=== PATIENT | male | born 1960 | race Caucasian/White ===

== ENCOUNTER → 2018-01-02 | Outpatient (CLI) | payer MEDICARE ==
[2015-01-16 13:43] VITALS: BMI 30.3
[~2018-01-02] MED LIST: ACET-1718 PO; ACET-3017 PO; ALB18R INH; ALBU8.5H IH; ALBU8.5H12 IH; AMOX-559 PO; AZIT-17 PO; CIPR500S3 PO; DIA5 PO; DIAZ-308 PO; DIAZ-311 PO; FLU IM; FLU45SYR17 IM; FLU45SYR25 IM ONLY; FLU60VIA31 IM; FLUT16SP19 NS; FLUT9.9S; HEPA20VI IM; HEPA40VI2 IM; LEDI1TAB PO; LOR5/325 PO; MECL-81 PO; MECL25TA9 PO; MELO-205 PO; MELO-207 PO; METR-1 PO; METR-159 PO; MULT-885 PO; NAPR220C11 PO; OMEP-125 PO; OMEP-137 PO; ONDA-2 PO; ONDA4TAB PO; ONDA4TAB97 PO; ONDA8TAB94 PO; ONDA8TAB98 PO; OXYC-373 PO; OXYC-865 PO; OXYC-869 PO; OXYC1TAB78 PO; OXYC5TAB38 PO; Oxycodone Hcl PO; PENI-24 PO; PER PO; POTA20TA12 PO; POTA99TA6 PO; PRED20TA6 PO; PROM-110 PO; PROM12.556 PO; Potassium Chloride PO; RIV10 PO; TRIA10.8
[2018-01-02 15:54] LABS: PLATELET COUNT, AUTOMATED 256 K/uL (150-450)
== END ==
LOC: LAB 15:35
PROVIDERS: ATTEND Nurse Practitioner Family
DX: R10.9 Unspecified abdominal pain (principal)
CPT/HCPCS: 36415; 82040; 82247; 82310; 82374; 82435; 82565; 82947; 84075; 84132; 84155; 84295; 84450; 84460; 84520; 85025

== ENCOUNTER → 2018-01-03 | Outpatient (CLI) | payer MEDICARE ==
[2015-01-16 13:43] VITALS: BMI 30.3
[~2018-01-03] MED LIST changes: +IOPAMIDOL 76% 75 ML INFUS BTL 75 ML ONE
--- NOTE | 2018-01-03 13:59 | RADIOLOGY IMAGING REPORT ---
FACILITY: [facility] - [place] PATIENT NAME: Cal Workman : 1960 MR: [id number] V: [id number] EXAM DATE: ORDERING PHYSICIAN: MADYSON WILLSON TECHNOLOGIST: Location: [facility] Patient: Cal Workman : 1960 Visit/Account:[id number] Date of Sevice: 01/03/2018 ABDOMEN/PELVIS W/WO CONTRAST HISTORY: LLQ pain - bloody stools TECHNIQUE: Axial images acquired through the abdomen/pelvis both with and without IV contrast.. Payal nal and sagittal reformatting also performed. Dose Lowering Technique One of the following dose optimization techniques was utilized in the performance of this exam: Autom ated exposure control; adjustment of the mA and/or kV according to the patient's size; or use of an i terative reconstruction technique. Specific details can be referenced in the facility's radiology C T exam operational policy. CONTRAST: 75 mL Isovue-370 COMPARISON: November 05, 2014 FINDINGS: Visualized lung bases: Negative. Hepatobiliary: Cholelithiasis although no evidence of bony ductal dilatation Spleen: Negative. Adrenals: Negative. Pancreas: Negative. Kidneys ureters and bladder: There is no demonstration of urolithiasis. There is a 1.2 cm cyst upper pole the right kidney and a 2.3 cm cyst mid pole of the left kidney. There are other smaller hypode nsities in the kidneys although too small to characterize. 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 There is limited visualization of the bladder is well due to these artifacts a lthough there suggestion of mild bladder wall thickening Genitalia: Pelvic contents not well seen due to the hip arthroplasty artifacts GI: There is diverticulosis of the left-sided colon. There is very subtle stranding in the pericoli c fat at the junction of the distal descending and sigmoid colon which may represent mild diverticuli tis. There is a tiny appendicolith although no inflammatory change seen surrounding the appendix. There is a small hiatal hernia Vessels/spaces/nodes: Three mild vascular calcifications Bones/soft tissues: There is a small periumbilical hernia containing fat. There are bilateral hip a rthroplasties Schmorl's nodes are seen at multiple lumbar vertebra Additional findings: None pertinent. IMPRESSION: There is diverticulosis of the left-sided colon. There is very subtle fat stranding seen at the junc tion of the distal descending and sigmoid colon which may represent very mild reticulitis given the c linical history Cholelithiasis although no evidence for ductal dilatation Suggestion of mild bladder wall thickening although pelvic contents not well seen due to hip arthropl asty artifacts Small hiatal hernia Small periumbilical hernia containing fat Report Dictated By: Coni Allison MD at 01/03/2018 1:30 PM Report E-Signed By: Coni Allison MD at 01/03/2018 1:54 PM WSN:[email or web address]
== END ==
LOC: CT 06:57
PROVIDERS: ATTEND Nurse Practitioner Family
DX: K80.20 Calculus of gallbladder without cholecystitis without obstruction (principal); K42.9 Umbilical hernia without obstruction or gangrene; K44.9 Diaphragmatic hernia without obstruction or gangrene; K57.30 Diverticulosis of large intestine without perforation or abscess without bleeding; Z96.643 Presence of artificial hip joint, bilateral
CPT/HCPCS: 74178; Q9967

== ENCOUNTER → 2018-01-12 | Outpatient (CLI) | payer MEDICARE ==
[2015-01-16 13:43] VITALS: BMI 30.3
[~2018-01-12] MED LIST changes: -IOPAMIDOL 76% 75 ML INFUS BTL 75 ML ONE
== END ==
LOC: LAB 04:37
PROVIDERS: ATTEND Nurse Practitioner Family
DX: R19.7 Diarrhea, unspecified (principal)
CPT/HCPCS: 87324; 87449

== ENCOUNTER → 2018-01-16 | Outpatient (CLI) | payer MEDICARE ==
[2015-01-16 13:43] VITALS: BMI 30.3
== END ==
LOC: LAB 10:06
PROVIDERS: ATTEND Nurse Practitioner Family
DX: R10.13 Epigastric pain (principal)
CPT/HCPCS: 36415; 82150; 83690

== ENCOUNTER → 2018-07-03 | Outpatient (CLI) | payer MEDICARE ==
[2015-01-16 13:43] VITALS: BMI 30.3
[~2018-07-03] MED LIST changes: +FLU60VIA41 IM; -METR-159 PO; +METR250T8 PO
[2018-07-03 14:26] LABS: PLATELET COUNT, AUTOMATED 254 K/uL (150-450)
== END ==
LOC: LAB 13:49
PROVIDERS: ATTEND Nurse Practitioner Family
DX: R19.7 Diarrhea, unspecified (principal); R10.9 Unspecified abdominal pain
CPT/HCPCS: 36415; 82040; 82150; 82247; 82310; 82374; 82435; 82565; 82947; 83690; 83735; 84075; 84132; 84155; 84295; 84443; 84450; 84460; 84520; 85025

== ENCOUNTER → 2018-07-06 | Outpatient (REF) | payer MEDICARE ==
[2015-01-16 13:43] VITALS: BMI 30.3
== END ==
LOC: ZZSENDIN 14:09
PROVIDERS: ATTEND Nurse Practitioner Family
DX: R19.7 Diarrhea, unspecified (principal)
CPT/HCPCS: 83630; 87045; 87324; 87338; 87449

== ENCOUNTER → 2018-07-17 | Outpatient (CLI) | payer MEDICARE ==
[2015-01-16 13:43] VITALS: BMI 30.3
[~2018-07-17] MED LIST changes: +IOPAMIDOL 76% 100 ML INFUS BTL 100 ML ONE; -NAPR220C11 PO; +NAPR220C62 PO
--- NOTE | 2018-07-17 10:34 | RADIOLOGY IMAGING REPORT ---
FACILITY: [facility] PATIENT NAME: Cal Workman : 1960 MR: [id number] V: [id number] EXAM DATE: ORDERING PHYSICIAN: MADYSON WILLSON TECHNOLOGIST: Location: [facility] - [place] Patient: Cal Workman : 1960 Visit/Account:[id number] Date of Sevice: 07/17/2018 CT ABDOMEN PELVIS W & W/O CONTRAST HISTORY: Diarrhea x2 months TECHNIQUE: Axial images acquired through the abdomen/pelvis both with and without IV contrast.. Payal nal and sagittal reformatting also performed.Dose Lowering Technique One of the following dose optimization techniques was utilized in the performance of this exam: Autom ated exposure control; adjustment of the mA and/or kV according to the patient's size; or use of an i terative reconstruction technique. Specific details can be referenced in the facility's radiology C T exam operational policy. CONTRAST: 75 mL Isovue-370 COMPARISON: CT abdomen and pelvis January 03, 2018 FINDINGS: Visualized lung bases: Negative. Hepatobiliary: Cholelithiasis although no evidence of bony ductal dilatation Spleen: Negative. Adrenals: Negative. Pancreas: Negative. Kidneys ureters and bladder: Bilateral renal cysts appear unchanged. Additional tiny hypodensities w ithin the kidneys also appear similar and likely represent additional cysts although are too small to characterize by CT. 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 The appendix is visualized and does not appear inflamed Vessels/spaces/nodes: There mild atherosclerotic calcifications in the abdominal aorta and branch ve ssels Bones/soft tissues: There is a small periumbilical hernia containing fat There are bilateral hip arthroplasties There are mild spondylotic changes the lumbar spine Additional findings: None pertinent. 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 Small periumbilical hernia containing fat Additional chronic findings as described Report Dictated By: Coni Allison MD at 07/17/2018 9:40 AM Report E-Signed By: Coni Allison MD at 07/17/2018 10:29 AM WSN:[email or web address]
== END ==
LOC: CT 02:16
PROVIDERS: ATTEND Nurse Practitioner Family
DX: K80.20 Calculus of gallbladder without cholecystitis without obstruction (principal); N28.1 Cyst of kidney, acquired; K57.30 Diverticulosis of large intestine without perforation or abscess without bleeding
CPT/HCPCS: 74178; Q9967

== ENCOUNTER → 2018-07-23 | Outpatient (CLI) | payer MEDICARE ==
[2015-01-16 13:43] VITALS: BMI 30.3
[~2018-07-23] MED LIST changes: +DICY10CA11 PO; -IOPAMIDOL 76% 100 ML INFUS BTL 100 ML ONE; +ONDA4TAB9 PO
[2018-07-23 14:23] LABS: PLATELET COUNT, AUTOMATED 263 K/uL (150-450)
== END ==
LOC: LAB 13:43
PROVIDERS: ATTEND Nurse Practitioner Family
DX: R10.9 Unspecified abdominal pain (principal); R11.2 Nausea with vomiting, unspecified; Z12.5 Encounter for screening for malignant neoplasm of prostate
CPT/HCPCS: 36415; 82150; 82784; 83690; 84443; 85025; G0103; 82040; 82247; 82310; 82374; 82435; 82565; 82947; 84075; 84132; 84153; 84155; 84295; 84450; 84460; 84520

== ENCOUNTER → 2018-09-17 | Outpatient (CLI) | payer MEDICARE ==
[2015-01-16 13:43] VITALS: BMI 30.3
[2018-09-17 16:48] LABS: INR 1.03
== END ==
LOC: LAB 15:39
PROVIDERS: ATTEND Physician Assistant Medical
DX: B18.2 Chronic viral hepatitis C (principal); R19.7 Diarrhea, unspecified
CPT/HCPCS: 36415; 80074; 85610; 86706; 87522

== ENCOUNTER → 2018-09-21 | Outpatient (REF) | payer MEDICARE ==
[2015-01-16 13:43] VITALS: BMI 30.3
== END ==
LOC: ZZSENDIN 12:51
PROVIDERS: ATTEND Physician Assistant Medical
DX: R19.7 Diarrhea, unspecified (principal); R63.4 Abnormal weight loss
CPT/HCPCS: 82705; 83520; 87505; 87506

== ENCOUNTER → 2018-10-19 | Outpatient (CLI) | payer MEDICARE ==
[2015-01-16 13:43] VITALS: BMI 30.3
[~2018-10-19] MED LIST changes: -OMEP-125 PO; +OMEP-126 PO; -PROM12.556 PO; +PROM12.557 PO
== END ==
LOC: LAB 08:44
PROVIDERS: ATTEND Physician Assistant Medical
DX: B18.2 Chronic viral hepatitis C (principal); K26.9 Duodenal ulcer, unspecified as acute or chronic, without hemorrhage or perforation; R19.7 Diarrhea, unspecified; R63.4 Abnormal weight loss
CPT/HCPCS: 86708; 86709

== ENCOUNTER → 2018-12-18 | Outpatient (CLI) | payer MEDICARE ==
[2015-01-16 13:43] VITALS: BMI 30.3
[2018-12-18 12:04] LABS: PLATELET COUNT, AUTOMATED 282 K/uL (150-450)
== END ==
LOC: LAB 11:32
PROVIDERS: ATTEND Physician Assistant Medical
DX: B18.2 Chronic viral hepatitis C (principal)
CPT/HCPCS: 36415; 82040; 82247; 82310; 82374; 82435; 82565; 82947; 84075; 84132; 84155; 84295; 84450; 84460; 84520; 85025